=== PATIENT | female | born 1990 | race Caucasian/White ===

== ENCOUNTER 2016-07-03 00:58 | Emergency (ER) | payer BC ==
[~2016-07-03] VITALS: Ht 170.2 cm; Wt 62.5 kg
[2016-07-03 01:36] VITALS: Ht 170.2 cm; Wt 62.5 kg
[2016-07-03] MEDS ORDERED: morphine 4 MG/ML VIAL IV STA (03:30)
[2016-07-03] MEDS ORDERED: ONDANSETRON 4 MG INJ IV STA (03:30)
[2016-07-03] MEDS ORDERED: SOD CHLORIDE 0.9% 1,000 ML IV STA (03:30)
--- NOTE | 2016-07-03 03:36 | ERD ---
ER Documentation Chief Complaint Date/Time DATE: 07/03/16 TIME: 03:33 Chief Complaint Flank pain since 2200 HPI Patient is 26-year-old female with past medical history kidney stones who presents to the emergency department with left-sided flank pain which started at approximately 10:30 PM yesterday. Patient states that she is unable to sit or lie down secondary to pain. Patient states her current pain level is 10 out of 10. Patient states that the pain is constant but "comes in waves where it is worse". Patient states that the pain as sharp and stabbing in nature. Patient also reports bright red urine. Patient states that she is having frequency and urgency. Patient states that her periods are irregular however she is on oral contraceptive pills. Patient denies any fever, chills, nausea, vomiting, upper abdominal pain, chest pain, shortness breath or loss of consciousness. ROS All systems reviewed and are negative except as per history of present illness. Medications Home Meds Active Scripts Hydrocodone/Acetaminophen ([place] 5-325 Tablet) 1 Each Tablet, 1 TAB PO Q6H Y for PAIN, #10 TAB Prov:THU LOWE PA-C 07/03/16 Ibuprofen* (Motrin*) 600 Mg Tab, 600 MG PO Q6, #30 TAB Prov:THU LOWE PA-C 07/03/16 Ciprofloxacin Hcl* (Ciprofloxacin Hcl*) 500 Mg Tablet, 500 MG PO BID for 10 Days , TAB Prov:THU LOWE PA-C 07/03/16 Allergies Allergies: Coded Allergies: Penicillins (Verified Allergy, Unknown, 07/03/16) PMhx/Soc Medical and Surgical Hx: pt denies Medical Hx, pt denies Surgical Hx Hx Alcohol Use: Yes Hx Substance Use: No Hx Tobacco Use: No Smoking Status: Never smoker FmHx Family History: No diabetes Physical Exam Vitals Vital Signs Date Time Temp Pulse Resp B/P Pulse Ox O2 Delivery O2 Flow Rate FiO2 07/03/16 06:10 98.3 75 18 104/67 100 Room Air 07/03/16 01:36 97.8 99 18 152/96 100 Physical Exam GENERAL: Well-developed, well-nourished female. Appears uncomfortable secondary to pain. HEAD: Normocephalic, atraumatic. EYES: Pupils are equally reactive bilaterally. EOMs grossly intact. No conjunctival erythema. ENT: Moist mucous membranes. No uvula deviation. No kissing tonsils. NECK: Supple. No meningismus. Normal range of motion of the neck. LUNG: Clear to auscultation bilaterally. No rhonchi, wheezing, rales or coarse breath sounds. HEART: Regular rate and rhythm. No murmurs, rubs or gallops. ABDOMEN: No scars, ecchymosis or rashes noted. Soft, nontender, and nondistended. Positive bowel sounds in all four quadrants. No rebound tenderness , no guarding. (-) McBurney's point tenderness. Left sided CVA tenderness. BACK: No midline tenderness. EXTREMITIES: Equal pulses bilaterally. No peripheral clubbing, cyanosis or edema. No unilateral leg swelling. NEUROLOGIC: Alert and oriented. Moving all four extremities without any difficulty. Normal speech. Steady gait. SKIN: Normal color. Warm and dry. No rashes or lesions. Result Diagram: 07/03/16 0341 07/03/16 0341 Results 24 hrs Laboratory Tests Test 07/03/16 03:10 07/03/16 03:41 Urine Bacteria MODERATE Urine Bilirubin NEGATIVE Urine Clarity CLEAR Urine Color NAHUM Urine Glucose 0.1%% Urine Hemoglobin 3+ Urine Ketones NEGATIVE Urine Leukocyte Esterase 3+ Urine Microscopic RBC 10-25/HPF Urine Microscopic WBC 25-50/HPF Urine Mucus FEW Urine Nitrite POSITIVE Urine Specific [place] <=1.005 Urine Squamous Epithelial Cells FEW Urine Total Protein 1+ Urine Urobilinogen 1.0 E.U./dL Urine WBC Clumps MODERATE Urine pH 5.5 Alanine Aminotransferase (ALT/SGPT) 21IU/L Albumin 4.6g/dl Albumin/Globulin Ratio 1.43 Alkaline Phosphatase 89IU/L Anion Gap 18 Aspartate Amino Transf (AST/SGOT) 22IU/L Basophils # 0.010^3/ul Basophils % 0.2% Blood Urea Nitrogen 10mg/dl Calcium Level 9.4mg/dl Carbon Dioxide Level 25mmol/L Chloride Level 103mmol/L Creatinine 0.65mg/dl Direct Bilirubin 0.00mg/dl Eosinophils # 0.110^3/ul Eosinophils % 0.3% Globulin 3.20g/dl Glucose Level 110mg/dl Hematocrit 40.9% Hemoglobin 14.1g/dl Indirect Bilirubin 1.1mg/dl Lipase 36U/L Lymphocytes # 1.810^3/ul Lymphocytes % 9.1% Mean Corpuscular Hemoglobin 31.6pg Mean Corpuscular Hemoglobin Concent 34.5g/dl Mean Corpuscular Volume 91.6fl Mean Platelet Volume 9.5fl Monocytes # 1.010^3/ul Monocytes % 5.0% Neutrophils # 16.910^3/ul Neutrophils % 85.4% Nucleated Red Blood Cells # 0.010^3/ul Nucleated Red Blood Cells % 0.0/100WBC Platelet Count 33584^3/UL Potassium Level 4.0mmol/L Red Blood Count 4.4610^6/ul Red Cell Distribution Width 12.6% Sodium Level 142mmol/L Total Bilirubin 1.1mg/dl Total Protein 7.8g/dl White Blood Count 19.810^3/ul Current Medications Medications (Trade) Dose Ordered Sig/Grupo Route PRN Reason Start Time Stop Time Status Last Admin Dose Admin Sodium Chloride (NS) 1,000 ml @ 1,000 mls/hr Q1H STAT IV 07/03/16 03:30 07/03/16 04:29 DC 07/03/16 03:44 Morphine Sulfate (morphine) 4 mg ONCE STAT IV 07/03/16 03:30 07/03/16 03:33 DC 07/03/16 03:44 Ondansetron HCl (Zofran Inj) 4 mg ONCE STAT IV 07/03/16 03:30 07/03/16 03:33 DC 07/03/16 03:44 Ketorolac Tromethamine (Toradol) 30 mg ONCE STAT IV 07/03/16 04:26 07/03/16 04:28 DC 07/03/16 04:37 Morphine Sulfate (morphine) 2 mg ONCE ONCE IV 07/03/16 04:30 07/03/16 04:31 DC 07/03/16 04:37 Ciprofloxacin (Cipro) 500 mg ONCE ONCE PO 07/03/16 06:00 07/03/16 06:01 DC 07/03/16 05:41 Procedures/MDM ED COURSE: The patient was stable throughout ED course. I kept the patient and/or family informed of laboratory and diagnostic imaging results throughout the ED course. DIAGNOSTIC IMAGING: Read by radiologist. DIAGNOSTIC IMAGING REPORT Patient: [facility] : 1990 Age: 26 Sex: F MR #: [id number] DOS: 07/03/16 0330 Ordering MD: THU LOWE PA-C Location: [facility] Room/Bed: PROCEDURE: CT Abdomen and pelvis without contrast. CLINICAL INDICATION: Abdominal pain. TECHNIQUE: CT scan of the abdomen and pelvis was performed on a multi- detector high-resolution CT scanner. Contiguous axial images were obtained from the lung bases to the ischial tuberosities without intravenous contrast. Coronal and sagittal reformatted images were also obtained. Images were reviewed on the PACS workstation. One or more of the following dose reduction techniques were used: - Automated exposure control. - Adjustment of the mA and/or kV according to patient size. - Use of iterative reconstruction technique. Exam CTD/vol = 6.57 mGy. Total exam DLP = 370.94 mGy-cm. COMPARISON: None. FINDINGS: Evaluation of the lung bases demonstrates minimal bibasilar asbestos. Abdomen: The liver is normal in size. There is no focal mass or dilatation of the biliary tree. The gallbladder is not distended. The spleen, pancreas and bilateral adrenal glands are within normal limits. Bilateral kidneys are normal in size with no contour deforming mass identified. There is no radiopaque renal or ureteral calculus identified. There is mild bilateral hydronephrosis. There is no retroperitoneal adenopathy. The abdominal aorta is of normal caliber. There is moderate retained stool within the colon. There is no bowel obstruction or free air. A normal appendix is partially visualized. There is no diverticulosis or diverticulitis. There is no ascites. Pelvis: The bladder is unremarkable. The uterus and adnexa are within normal limits. There is no significant pelvic adenopathy or free fluid. Evaluation of the osseous structures demonstrates no suspicious lytic or blastic lesion. There are bilateral pars defects of L5. IMPRESSION: Bilateral mild hydronephrosis. There is no radiopaque renal or ureteral calculus identified. Moderate retained stool within the colon. Bilateral pars defects of L5. .Jason Schwab MD, MD Date Time Electronically viewed and signed by .Jason Schwab MD, MD on 07/03/2016 04:33 .T/ CC: THU LOWE PA-C MEDICATIONS GIVEN: Morphine, Toradol, Zofran, IV fluids Patient tolerated medication well with no adverse reactions. Patient reported improvement in pain. MEDICAL DECISION MAKING: This is a 26-year-old female who presents with left-sided flank pain 4 hours. Patient does report a history of kidney stones in the past.. Vital signs were reviewed. Patient is afebrile. CBC showed no evidence of severe anemia. WBC count of 19.8. CMP showed no evidence of electrolyte abnormalities, severe acidosis, alkalosis, renal failure, or liver disease. Lipase showed no evidence of acute pancreatitis. UA showed 3+ leukocyte esterase, positive nitrates, microscopic RBCs of 10-25, microscopic WBCs of 25-30. Urine test was negative. CT scan of the abdomen and pelvis showed Bilateral mild hydronephrosis. There is no radiopaque renal or ureteral calculus identified. Moderate retained stool within the colon. Bilateral pars defects of L5. At this time, patient's presentation is most consistent with pyelonephritis. I have a much lower clinical concern for lower lobe pneumonia, DKA, bowel perforation, bowel obstruction, cholecystitis, choledocholithiasis, ascending cholangitis, hepatic abscess, pancreatitis, PUD, gastritis, GERD, splenic rupture, diverticulitis, nephrolithiasis, appendicitis, constipation, , PID, ovarian torsion or tubo-ovarian abscess. Patient will be treated with ciprofloxacin. Patient was given her first dose of antibiotics here in the emergency department. PRESCRIPTIONS: Ciprofloxacin, [place], ibuprofen DISCHARGE: She was given a copy of her imaging studies and blood work. At this time, patient is stable for discharge and outpatient management. I have instructed the patient to follow-up with his/her primary care physician in 1-2 days. She should follow-up with her PCP for repeat urinalysis in 2 weeks. I have instructed the patient to promptly return to the ER at any time for any new or worsening symptoms including increased pain, nausea, vomiting, diarrhea, fever, weakness or LOC. The patient and/or family expressed understanding of and agreement with this plan. All questions were answered. Home care instructions were provided. Departure Diagnosis: Primary Impression: Kidney stone Condition: Stable Patient Instructions: Understanding Kidney Stones Referrals: COMMUNITY CLINICS YOU HAVE RECEIVED A MEDICAL SCREENING EXAM AND THE RESULTS INDICATE THAT YOU DO NOT HAVE A CONDITION THAT REQUIRES URGENT TREATMENT IN THE EMERGENCY DEPARTMENT. FURTHER EVALUATION AND TREATMENT OF YOUR CONDITION CAN WAIT UNTIL YOU ARE SEEN IN YOUR DOCTORS OFFICE WITHIN THE NEXT 1-2 DAYS. IT IS YOUR RESPONSIBILITY TO MAKE AN APPOINTMENT FOR FOLOW-UP CARE. IF YOU HAVE A PRIMARY DOCTOR --you should call your primary doctor and schedule an appointment IF YOU DO NOT HAVE A PRIMARY DOCTOR YOU CAN CALL OUR PHYSICIAN REFERRAL HOTLINE AT IF YOU CAN NOT AFFORD TO SEE A PHYSICIAN YOU CAN CHOSE FROM THE FOLLOWING [facility] [id number] [facility]. [facility] [address] [facility] [facility] [address] [facility] [address] [facility] [facility] [address] [facility]. [facility] [address] [facility]. [facility] YOU HAVE RECEIVED A MEDICAL SCREENING EXAM AND THE RESULTS INDICATE THAT YOU DO NOT HAVE A CONDITION THAT REQUIRES URGENT TREATMENT IN THE EMERGENCY DEPARTMENT. FURTHER EVALUATION AND TREATMENT OF YOUR CONDITION CAN WAIT UNTIL YOU ARE SEEN IN YOUR DOCTORS OFFICE WITHIN THE NEXT 1-2 DAYS. IT IS YOUR RESPONSIBILITY TO MAKE AN APPOINTMENT FOR FOLOW-UP CARE. IF YOU HAVE A PRIMARY DOCTOR --you should call your primary doctor and schedule and appointment IF YOU DO NOT HAVE A PRIMARY DOCTOR YOU CAN CALL OUR PHYSICIAN REFERRAL HOTLINE AT . IF YOU CAN NOT AFFORD TO SEE A PHYSICIAN YOU CAN CHOSE FROM THE FOLLOWING [facility] INSTITUTIONS: [facility] [address] [place] [address] [facility] [address] [place] [address] [facility] [address] [place] [address] Additional Instructions: Call your primary care doctor TOMORROW for an appointment during the next 1-2 days.See the doctor sooner or return here if your condition worsens before your appointment time. Patient may need to follow-up with the urologist for further management of her symptoms. Take medication as prescribed. Hydrate well. THU LOWE PA-C Jul 03, 2016 03:36
[2016-07-03 04:18] LABS: ALBUMIN 4.6 g/dl (3.3-4.9); BASOPHILS % 0.2 % (0.0-2.0); EOSINOPHILS # 0.1 10^3/ul (0.0-0.5); EOSINOPHILS % 0.3 % (0.0-7.0); HEMATOCRIT 40.9 % (37.0-47.0); HEMOGLOBIN 14.1 g/dl (12.0-16.0); LYMPHOCYTES # 1.8 10^3/ul (0.8-2.9); LYMPHOCYTES % 9.1 % (15.0-51.0); MEAN CORPUSCULAR HEMOGLOBIN 31.6 pg (29.0-33.0); MEAN CORPUSCULAR HGB CONC 34.5 g/dl (32.0-37.0); MEAN CORPUSCULAR VOLUME 91.6 fl (82.0-101.0); MEAN PLATELET VOLUME 9.5 fl (7.4-10.4); NEUTROPHIL # 16.9 10^3/ul (1.6-7.5); NEUTROPHILS % 85.4 % (39.0-77.0); PLATELET COUNT 307 10^3/UL (140-440); RED BLOOD COUNT 4.46 10^6/ul (4.20-5.40); RED CELL DISTRIBUTION WIDTH 12.6 % (11.5-14.5); UNCORRECTED WBC 19.8 10^3/ul (4.8-10.8); WHITE BLOOD COUNT 19.8 10^3/ul (4.8-10.8)
[2016-07-03 04:21] LABS: ALBUMIN/GLOBULIN RATIO 1.43; BILIRUBIN,INDIRECT 1.1 mg/dl (0-1.1); BILIRUBIN,TOTAL 1.1 mg/dl (0.2-1.3); CREATININE 0.65 mg/dl (0.44-1.00); TOTAL PROTEIN 7.8 g/dl (6.1-8.1)
[2016-07-03 04:22] LABS: CALCIUM 9.4 mg/dl (8.4-10.2)
[2016-07-03] MEDS ORDERED: KETOROLAC 30 MG INJ IV STA (04:26)
[2016-07-03] MEDS ORDERED: morphine 2 MG INJ IV ONE (04:30)
--- NOTE | 2016-07-03 04:34 | RADRPT ---
PROCEDURE: CT Abdomen and pelvis without contrast. CLINICAL INDICATION: Abdominal pain. TECHNIQUE: CT scan of the abdomen and pelvis was performed on a multi-detector high-resolution CT scanner. Contiguous axial images were obtained from the lung bases to the ischial tuberosities wit hout intravenous contrast. Coronal and sagittal reformatted images were also obtained. Images were reviewed on the PACS workstation. One or more of the following dose reduction techniques were used: - Automated exposure control. - Adjustment of the mA and/or kV according to patient size. - Use of iterative reconstruction technique. Exam CTD/vol = 6.57 mGy. Total exam DLP = 370.94 mGy-cm. COMPARISON: None. FINDINGS: Evaluation of the lung bases demonstrates minimal bibasilar asbestos. Abdomen: The liver is normal in size. There is no focal mass or dilatation of the biliary tree. T he gallbladder is not distended. The spleen, pancreas and bilateral adrenal glands are within delisa l limits. Bilateral kidneys are normal in size with no contour deforming mass identified. There is no radiopaque renal or ureteral calculus identified. There is mild bilateral hydronephrosis. Ther e is no retroperitoneal adenopathy. The abdominal aorta is of normal caliber. There is moderate retained stool within the colon. There is no bowel obstruction or free air. A no rmal appendix is partially visualized. There is no diverticulosis or diverticulitis. There is no a scites. Pelvis: The bladder is unremarkable. The uterus and adnexa are within normal limits. There is no significant pelvic adenopathy or free fluid. Evaluation of the osseous structures demonstrates no suspicious lytic or blastic lesion. There are b ilateral pars defects of L5. IMPRESSION: Bilateral mild hydronephrosis. There is no radiopaque renal or ureteral calculus identified. Moderate retained stool within the colon. Bilateral pars defects of L5. .Jason Schwab MD, Date Time Electronically viewed and signed by .Jason Schwab MD, MD on 07/03/2016 04:33 .T/
[2016-07-03 04:42] LABS: CONDITION 1
[2016-07-03 04:46] LABS: ADD UMIC YES; URINE BILIRUBIN (Dip) NEGATIVE (NEGATIVE); URINE BLOOD (Dip) 3+ (NEGATIVE); URINE COLOR AMBER (YELLOW); URINE KETONES (Dip) NEGATIVE (NEGATIVE); URINE LEUKOCYTE ESTERASE (Dip) 3+ (NEGATIVE); URINE NITRITE (Dip) POSITIVE (NEGATIVE); URINE TOTAL PROTEIN (Dip) 1+ (NEGATIVE); URINE UROBILINOGEN (Dip) 1.0 E.U./dL (0.1-1.0)
[2016-07-03 05:24] LABS: SQUAMOUS EPITHELIAL CELL,UR FEW
[2016-07-03 05:25] LABS: BACTERIA,URINE MODERATE; MUCUS,URINE FEW
[2016-07-03] MEDS ORDERED: IBUP-1542 PO (05:55)
[2016-07-03] MEDS ORDERED: CIPR500T4 PO (05:55)
[2016-07-03] MEDS ORDERED: HYDR-906 PO (05:55)
[2016-07-03] MEDS ORDERED: CIPROFLOXACIN 500 MG TAB PO ONE (06:00)
[2016-07-03 06:10] VITALS: BP 104/67; PULSE 75; RESP 18; TEMP 98.3
== END 2016-07-03 06:10 | disposition home or self-care (01) ==
LOC: FTE 00:58
DX: N20.0 Calculus of kidney (principal)
CPT/HCPCS: 36415; 74176; 80053; 81001; 83690; 85025; 96374; 96375; 96376; 99285; J1885; J2270; J2405; J7030; 81003